=== PATIENT | female | born 1980 | race Caucasian/White ===

== ENCOUNTER 2018-06-23 17:25 | Emergency (ER) | payer OTHER ==
[2018-06-23 17:49] VITALS: BP 122/70; PULSE 84; TEMP 98.2; BMI 35.6
--- NOTE | 2018-06-23 18:04 | PDOC ---
History of Present Illness - General Chief Complaint: Injury Stated Complaint: RIGHT FOOT/ANKLE/KNEE INJURY FELL DOWN 3-4 STEPS Time Seen by Provider: 06/23/18 17:56 - History of Present Illness Initial Comments: 06/23/18 17:56 Ms. Taj Navarrete is a 37 yo female w/ pmh of hypothyroidism (on synthroid) who presents for evaluation s/p fall. Patient reports she fell down 3 stone steps onto concrete while walking her dogs, "twisting her ankle." She is currently complaining of R ankle pain and notes swelling. Also has abrasions to R elbow and knee she deems minor. Endorses numbness to tips of toes of R side. Patient denies any LOC or head injury. Took motrin 400mg 1 hour before arrival. Patient has no other complaints. The patient denies chest pain, shortness of breath, headache and dizziness. Denies fever, chills, nausea, vomit, diarrhea and constipation. Denies dysuria, frequency, urgency and hematuria. Past History - Past Medical History Allergies/Adverse Reactions: Allergies Allergy/AdvReac Type Severity Reaction Status Date / Time No Known Allergies Allergy Verified 06/23/18 17:31 Home Medications: Ambulatory Orders Levothyroxine [Synthroid -] 150 mcg PO DAILY 12/31/14 COPD: No Thyroid Disease: Yes - Reproductive History (#): 2 Para: 1 - Suicide/Smoking/Psychosocial Hx Smoking History: Never smoked Have you smoked in the past 12 months: No Information on smoking cessation initiated: No Hx Alcohol Use: No Drug/Substance Use Hx: No Substance Use Type: None Review of Systems - Review of Systems Comments:: 06/23/18 17:59 GENERAL/CONSTITUTIONAL: No fever or chills. No weakness. HEAD, EYES, EARS, NOSE AND THROAT: No change in vision. No ear pain or discharge. No sore throat. CARDIOVASCULAR: No chest pain or shortness of breath RESPIRATORY: No cough, wheezing, or hemoptysis. GASTROINTESTINAL: No nausea, vomiting, diarrhea or constipation. GENITOURINARY: No dysuria, frequency, or change in urination. MUSCULOSKELETAL: +R ankle, knee, and L elbow pain as described. SKIN: No rash NEUROLOGIC: No headache, vertigo, loss of consciousness, or change in strength/ sensation. ENDOCRINE: No increased thirst. No abnormal weight change HEMATOLOGIC/LYMPHATIC: No anemia, easy bleeding, or history of blood clots. ALLERGIC/IMMUNOLOGIC: No hives or skin allergy. *Physical Exam - Vital Signs Last Vital Signs Temp Pulse Resp BP Pulse Ox 98.2 F 84 16 122/70 100 06/23/18 17:27 18 17:27 06/23/18 17:27 06/23/18 17:27 06/23/18 17:27 - Physical Exam Comments: 06/23/18 17:59 GENERAL: Awake, alert, and fully oriented, in no acute distress HEAD: No signs of trauma, normocephalic, atraumatic EYES: PERRLA, EOMI, sclera anicteric, conjunctiva clear ENT: Auricles normal inspection, hearing grossly normal, nares patent, oropharynx clear without exudates. Moist mucosa NECK: Normal ROM, supple, no lymphadenopathy, JVD, or masses LUNGS: No distress, speaks full sentences, clear to auscultation bilaterally HEART: Regular rate and rhythm, normal S1 and S2, no murmurs, rubs or gallops, peripheral pulses normal and equal bilaterally. ABDOMEN: Soft, nontender, normoactive bowel sounds. No guarding, no rebound. No masses EXTREMITIES: +Right ankle TTP at medial and lateral maleolus. Patient able to range however exam limited by pain. Strength intact. Swelling without ecchymosis noted. NEUROLOGICAL: Cranial nerves II through XII grossly intact. Normal speech, normal gait, no focal sensorimotor deficits SKIN: Warm, Dry, normal turgor, no rashes or lesions noted. Moderate Sedation - Procedure Monitoring Vital Signs: Procedure Monitoring Vital Signs Temperature 98.2 F 06/23/18 17:27 Pulse Rate 84 06/23/18 17:27 Respiratory Rate 16 06/23/18 17:27 Blood Pressure 122/70 06/23/18 17:27 O2 Sat by Pulse Oximetry (%) 100 06/23/18 17:27 Medical Decision Making - Medical Decision Making 06/23/18 18:06 Ms. Taj Navarrete is a 37 yo female w/ pmh as described who presents for evaluation of R ankle injur. XR ordered for further evaluation. 06/23/18 18:37 Xray negative for injury. No concern for acute process at this time. Discharging with crutches and instructions to f/u as needed with orthopedics for further evaluation. *DC/Admit/Observation/Transfer Diagnosis at time of Disposition: Ankle sprain Qualifiers: Encounter type: initial encounter Involved ligament of ankle: unspecified ligament Laterality: right Qualified Code(s): S93.401A - Sprain of unspecified ligament of right ankle, initial encounter - Discharge Dispostion Disposition: HOME Condition at time of disposition: Stable - Referrals Referrals: Fer Reese MD [Staff Physician] - - Patient Instructions Printed Discharge Instructions: DI for Ankle Sprain Additional Instructions: You were evaluated today in the ER for your ankle pain. We evaluated with your ankle with Xray and were able to find no bony injury at this time. You may take over the counter motrin or tylenol per package instructions for further management of your pain. Follow-up with orthopedics using provided information as needed. Return to ER if any fever, chills, increase in pain not manageable with over the counter medications, or other concerning symptoms. - Post Discharge Activity
--- NOTE | 2018-06-23 18:29 | PDOC ---
Attending Attestation - Resident Resident Name: Jason Ortiz - ED Attending Attestation I have performed the following: I have examined & evaluated the patient, The case was reviewed & discussed with the resident, I agree w/resident's findings & plan, Exceptions are as noted - HPI HPI: 06/23/18 18:15 Ms. Taj Navarrete is a 37 yo female w/ pmh of hypothyroidism (on synthroid) who presents to the ER s/p fall. Pt reports that she fell down 3 stone steps onto concrete while walking her dogs, inverted her ankle. No LOC or head injury. Took motrin 400mg 1 hour before arrival. Patient has no other complaints. - Physicial Exam PE: 06/23/18 18:43 A&O x 3 Right foot: Lateral malleolus swollen, tender No bruising 2+ DP 2+ PT Sensation in tact Pain with dorsi and plantar flexion - Medical Decision Making 06/23/18 18:18 Xray
== END 2018-06-23 18:58 | disposition home or self-care (01) ==
LOC: FER 17:25
DX: S93.401A Sprain of unspecified ligament of right ankle, initial encounter (principal); W10.9XXA Fall (on) (from) unspecified stairs and steps, initial encounter; Y93.89 Activity, other specified; Y92.89 Other specified places as the place of occurrence of the external cause; E07.9 Disorder of thyroid, unspecified
CPT/HCPCS: 73610-TC-RT-FY; 73630-TC-RT-FY; 99282-25